=== PATIENT | female | born 1975 | race Two or more races ===

== ENCOUNTER → 2017-03-13 | Outpatient (CLI) | payer OTHER ==
[~2017-03-13] MED LIST: BCP; SERT25TA PO
== END | disposition home or self-care (01) ==
LOC: CFH 13:20
PROVIDERS: ATTEND Family Medicine
DX: N63 Unspecified lump in breast (principal); R92.2 Inconclusive mammogram
CPT/HCPCS: 76641; G0206

== ENCOUNTER → 2017-04-10 | Outpatient (CLI) | payer OTHER | END | disposition home or self-care (01) | LOC: CFH 07:07 | PROVIDERS: ATTEND Family Medicine | DX: N63 Unspecified lump in breast (principal); R92.2 Inconclusive mammogram | CPT/HCPCS: 19083; 88305; G0206-LT ==

== ENCOUNTER 2020-01-12 14:17 | Emergency (ER) | payer OTHER ==
[~2020-01-12] VITALS: Ht 147.3 cm; Wt 62.2 kg
--- NOTE | 2020-01-12 14:40 | NUR ---
FIRST CONTACT WITH PT. PT REPORT ABD PAIN SINCE THE MORNING FOR EPIGASTRIC PAIN, NO RADIATION. UNABLE TO EAT, +N/V, NPO BM OR PASS GAS. PT'S AOX4. RESPS EVEN AND UNLABORED. BP/SPO2 MONITORS IN PLACE. CALL LIGHT WITHIN REACH.
--- NOTE | 2020-01-12 14:40 | NUR ---
PT AMB TO BR AND BACK TO ROOM. PT PROVIDED A LITTLE AMOUNT OF URINE SAMPLE. THIS RN WALKED TO LAB FOR UA.
[2020-01-12 15:11] LABS: MICROSCOPIC INDICATED
[2020-01-12 15:16] LABS: CULTURE INDICATED? NO
--- NOTE | 2020-01-12 15:26 | NUR ---
PT RESTING IN [facility]. PT'S AOX4. RESPS EVEN AND UNLABORED. BP/SPO2 MONITORS IN PLACE.
--- NOTE | 2020-01-12 15:51 | NUR ---
pt in xray at this time.
[2020-01-12] MEDS ORDERED: HYDROmorphone 1 MG/ML, 1ML INJ ONE (15:56)
[2020-01-12] MEDS ORDERED: MAALOX/HYOSCYAMINE/LIDOCAINE 45 ML BTL ONE (15:56)
[2020-01-12] MEDS ORDERED: ONDANSETRON 2MG/ML, 2ML ONE (15:56)
[2020-01-12] MEDS ORDERED: MAALOX/HYOSCYAMINE/LIDOCAINE 45 ML BTL PO ONE (16:00)
[2020-01-12] MEDS ORDERED: HYDROmorphone 2 MG/ML, 1ML IVPush PRN (16:00)
[2020-01-12] MEDS ORDERED: SODIUM CHLORIDE 0.9% 1,000ML IVBOLUS ONE (16:00)
[2020-01-12] MEDS ORDERED: SODIUM CHLORIDE FLUSH 10ML SYR IVF ONE (16:00)
[2020-01-12] MEDS ORDERED: ONDANSETRON 2MG/ML, 2ML IVPush ONE (16:00)
--- NOTE | 2020-01-12 16:09 | NUR ---
PT MEDICATED PER EMAR. PT TOLERATED WELL. NS INFUSING AT THIS TIME.
[2020-01-12 16:14] LABS: BASOPHILS # (AUTO) 0.01 x10^3/uL (0-0.1); BASOPHILS % (AUTO) 0 % (0-1); EOSINOPHILS % (AUTO) 0 % (1-7); LYMPHOCYTES # (AUTO) 0.69 x10^3/uL (1-3.4); LYMPHOCYTES % (AUTO) 5 % (22-44); MD NO; MEAN CORPUSCULAR HEMOGLOBIN 29.3 pg (27.0-34.8); MEAN CORPUSCULAR HGB CONC 33.5 g/dL (32.4-35.8); MEAN CORPUSCULAR VOLUME 87.2 fL (80-100); MEAN PLATELET VOLUME 7.9 fL (7.4-10.4); MONOCYTES # (AUTO) 0.19 x10^3/uL (0.2-0.8); MONOCYTES % (AUTO) 1 % (2-9); NEUTROPHILS # (AUTO) 12.67 x10^3/uL (1.8-6.8); NEUTROPHILS % (AUTO) 94 % (42-75); PLATELET COUNT 368 x10^3/uL (130-400); RED BLOOD COUNT 4.59 x10^6/uL (3.82-5.3); RED CELL DISTRIBUTION WIDTH 12.8 % (9.6-15.2)
[2020-01-12 16:27] LABS: ALANINE AMINOTRANSFERASE 18 U/L (12-78); ANION GAP 11 mmol/L (5-15); CALCIUM 9.2 mg/dL (8.5-10.1); CHLORIDE 108 mmol/L (98-107); CREATININE 0.85 mg/dL (0.55-1.02)
[2020-01-12 16:30] LABS: ALKALINE PHOSPHATASE 71 U/L (45-117); BILIRUBIN,TOTAL 0.7 mg/dL (0.2-1.0); TOTAL PROTEIN 7.9 g/dL (6.4-8.2)
--- NOTE | 2020-01-12 17:07 | NUR ---
pt's pain level is 4/10 at this time. pt resting in gurney. pt's aox4. resps even and unlabored.
[2020-01-12] MEDS ORDERED: OMNIPAQUE 350 MG/ML, 100ML BOTTLE ONE (17:50)
[2020-01-12 18:00] VITALS: BP 126/69
--- NOTE | 2020-01-12 18:00 | NUR ---
PT BACK TO ROOM FROM CT. PT'S AOX4. RESPS EVEN AND UNLABORED. BP/SPO2 MONITORS IN PLACE. CALL LIGHT WITHIN REACH.
--- NOTE | 2020-01-12 18:27 | NUR ---
Patient given discharge instructions and they have confirmed that they understand the instructions.
== END 2020-01-12 18:28 | disposition home or self-care (01) ==
LOC: ED 18:20
DX: R10.13 Epigastric pain (principal); D72.829 Elevated white blood cell count, unspecified; R11.2 Nausea with vomiting, unspecified; I10 Essential (primary) hypertension
CPT/HCPCS: 36415; 74022; 74177; 80053; 81001; 83605; 83690; 85025; 96361; 96374; 96375; 99285; J1170; J2405; J7030; Q9967

== ENCOUNTER 2020-01-19 08:47 | Emergency (ER) | payer OTHER ==
[~2020-01-19] VITALS: Ht 147.3 cm; Wt 62.3 kg
--- NOTE | 2020-01-19 09:08 | NUR ---
PT PRESENTS TO ED WITH C/O EPIGASTRIC PAIN, PT WAS SEEN HERE ON DATE OF ONSET LAST SUNDAY, PT STATES AFTER THAT IT SUBSIDED FOR TWO DAYS AND HAS RETURNED. PT REPORTS ONE LOOSE BM THIS AM, DENIES N/V. PT DENIES HEMATOCHEZIA. PT DENIES COUGH/SICK CONTACTS. PT ATTACHED TO ALL MONITORS, DRESSED IN GOWN AND PROVIDED WITH WARM BLANKET. CALL LIGHT IN REACH. AWAITING MD AND ORDERS.
[2020-01-19] MEDS ORDERED: FAMOTIDINE 20 MG TABLET PO ONE (10:00)
[2020-01-19] MEDS ORDERED: MAALOX/HYOSCYAMINE/LIDOCAINE 45 ML BTL PO ONE (10:00)
[2020-01-19] MEDS ORDERED: MAALOX/HYOSCYAMINE/LIDOCAINE 45 ML BTL ONE (10:02)
[2020-01-19] MEDS ORDERED: FAMOTIDINE 20 MG TABLET ONE (10:02)
[2020-01-19 10:11] LABS: BASOPHILS % (AUTO) 0 % (0-1); EOSINOPHILS # (AUTO) 0.02 x10^3/uL (0-0.4); EOSINOPHILS % (AUTO) 0 % (1-7); LYMPHOCYTES # (AUTO) 1.12 x10^3/uL (1-3.4); LYMPHOCYTES % (AUTO) 9 % (22-44); MD NO; MEAN CORPUSCULAR HEMOGLOBIN 29.1 pg (27.0-34.8); MEAN CORPUSCULAR HGB CONC 33.4 g/dL (32.4-35.8); MEAN CORPUSCULAR VOLUME 87.2 fL (80-100); MEAN PLATELET VOLUME 7.8 fL (7.4-10.4); MONOCYTES # (AUTO) 0.14 x10^3/uL (0.2-0.8); MONOCYTES % (AUTO) 1 % (2-9); NEUTROPHILS % (AUTO) 90 % (42-75); PLATELET COUNT 428 x10^3/uL (130-400); RED BLOOD COUNT 4.72 x10^6/uL (3.82-5.3); RED CELL DISTRIBUTION WIDTH 12.4 % (9.6-15.2)
[2020-01-19 10:19] LABS: ALANINE AMINOTRANSFERASE 28 U/L (12-78); ALBUMIN 3.9 g/dL (3.4-5.0); ANION GAP 7 mmol/L (5-15); CALCIUM 9.3 mg/dL (8.5-10.1); CHLORIDE 109 mmol/L (98-107); CREATININE 0.88 mg/dL (0.55-1.02)
[2020-01-19 10:21] LABS: ALKALINE PHOSPHATASE 84 U/L (45-117); BILIRUBIN,TOTAL 0.5 mg/dL (0.2-1.0); TOTAL PROTEIN 7.9 g/dL (6.4-8.2)
[2020-01-19] MEDS ORDERED: ONDANSETRON 2MG/ML, 2ML ONE (10:29)
[2020-01-19] MEDS ORDERED: ONDANSETRON 2MG/ML, 2ML IVPush ONE (10:30)
[2020-01-19] MEDS ORDERED: SODIUM CHLORIDE FLUSH 10ML SYR IVF ONE (10:30)
[2020-01-19] MEDS ORDERED: MORPHINE SULFATE 4 MG/ML, 1ML ONE ×3 (10:30→14:25)
[2020-01-19] MEDS: MORPHINE SULFATE 4 MG/ML, 1ML IVPush PRN ×2 (10:35→12:46)
--- NOTE | 2020-01-19 10:38 | NUR ---
PT REASSESSED, IN TEARS D/T INCREASED EPIGASTRIC PAIN. NO N/V. YENNY DIAZ NOTIFIED. MEDS ORDERED AND ADMIN PER EMAR, TOLERATING WELL. ALL MONITORS REMAIN IN PLACE. AWAITING PROVIDER REASSESSMENT AND DISPO.
--- NOTE | 2020-01-19 10:55 | NUR ---
PT REPORTS PAIN LEVEL DOWN FROM 10/10 TO 7/10 AT THIS TIME. PT A&O, RESPS EVEN AND UNLABORED, NSR ON MATTRESS SPECIALIST WITH NO ECTOPY. AWAITING PROVIDER REASSESSMENT AND DISPO.
--- NOTE | 2020-01-19 10:58 | NUR ---
REPORT GIVEN TO ROCHELLE LOGAN AT BEDSIDE.
--- NOTE | 2020-01-19 10:58 | NUR ---
PT REPORT FROM ROCHELLE ALCALA. PT CARE TO BE ASSUMED. PT SITTING QUIETLY ON BED, AWAITING TEST RESULTS.
--- NOTE | 2020-01-19 11:26 | NUR ---
DR ESTRADA BS
[2020-01-19] MEDS ORDERED: LISI10TA2 PO (11:29)
[2020-01-19] MEDS ORDERED: VILA40TA PO (11:29)
[2020-01-19] MEDS ORDERED: LEVO1TAB6 PO (11:29)
[2020-01-19] MEDS ORDERED: FAMOTIDINE 20 MG/2 ML IV ONE (11:30)
[2020-01-19] MEDS ORDERED: FAMOTIDINE 20 MG/2 ML ONE (11:34)
--- NOTE | 2020-01-19 11:44 | NUR ---
PIV ASSESSED: PATENT. PEPCID GIVEN PER EMAR. PT CHOSE TO HOLD MORPHINE UNTIL JUST PRIOR TO DC. U/S NOW AT BS.
--- NOTE | 2020-01-19 12:49 | NUR ---
MORPHINE GIVEN PER EMAR
--- NOTE | 2020-01-19 14:12 | NUR ---
CRISTA TOBIN TO DISCUSS POC
[2020-01-19 14:28] VITALS: BP 135/69
[2020-01-19] MEDS ORDERED: MORPHINE SULFATE 4 MG/ML, 1ML IVPush PRN (14:30)
== END 2020-01-19 14:48 | disposition home or self-care (01) ==
LOC: ED 12:08
DX: K80.50 Calculus of bile duct without cholangitis or cholecystitis without obstruction (principal); I10 Essential (primary) hypertension
CPT/HCPCS: 36415; 76700; 80053; 83690; 85025; 93005; 96374; 96375; 96376; 99285; J2270; J2405; J3490

== ENCOUNTER 2020-03-25 12:34 | Outpatient (CLI) | payer OTHER ==
[~2020-03-25 12:34] MED LIST changes: +LEVO1TAB6 PO; +LISI10TA2 PO; +VILA40TA PO
[2020-03-25] MEDS ORDERED: FAMO-79 PO (14:04)
[2020-03-25] MEDS ORDERED: ONDA4TAB7 PO (14:04)
== END 2020-03-25 23:59 | disposition home or self-care (01) ==
LOC: STAR 12:34
PROVIDERS: ATTEND Thoracic Surgery (Cardiothoracic Vascular Surgery)
DX: Z11.59 Encounter for screening for other viral diseases (principal)
CPT/HCPCS: U0001-CS

== ENCOUNTER 2020-03-31 12:55 | Day surgery (SDC) | payer OTHER ==
[~2020-03-31] VITALS: Ht 149.9 cm; Wt 59.2 kg
[~2020-03-31 12:55] MED LIST changes: +BUPIVACAINE/PF-EPI 0.5% 1:200K ONE; +FAMO-79 PO; +ONDA4TAB7 PO
[2020-03-31 13:16] VITALS: BP 148/102
[2020-03-31] MEDS ORDERED: LACTATED RINGERS 1,000 ML IV SCH ×2 (13:19→14:33)
[2020-03-31] MEDS ORDERED: CHLORHEXIDINE 15 ML UDC ONE (13:24)
[2020-03-31] MEDS ORDERED: CHLORHEXIDINE 15 ML UDC MM ONE (13:30)
[2020-03-31] MEDS ORDERED: FENTANYL PF 250 MCG/5ML ONE (13:30)
[2020-03-31] MEDS ORDERED: PROPOFOL 50 ML ONE (13:30)
[2020-03-31] MEDS ORDERED: MIDAZOLAM 1 MG/ML, 2ML ONE (13:30)
[2020-03-31 13:36] LABS: HCG UR SG 1.015 (1.003-1.030)
[2020-03-31] MEDS ORDERED: ONDANSETRON 2MG/ML, 2ML IVPush PRN ×2 (15:00)
[2020-03-31] MEDS ORDERED: DIAZEPAM 5 MG/ML, 2ML IVPush PRN (15:00)
[2020-03-31] MEDS ORDERED: OXYcodone 5 MG/5 ML ORAL.SOL UDC PO PRN (15:00)
[2020-03-31] MEDS ORDERED: HYDROcodone/APAP 5/325 TABLET PO PRN (15:00)
[2020-03-31] MEDS ORDERED: ACETAMINOPHEN 650 MG/20.3 ML UDC PO PRN (15:00)
[2020-03-31] MEDS ORDERED: morphine SULFATE 10 MG/ML, 1ML IVPush PRN (15:00)
[2020-03-31] MEDS ORDERED: EPHEDRINE 50 MG/ML, 1ML IVPush PRN (15:00)
[2020-03-31] MEDS ORDERED: EPHEDRINE 50 MG/ML, 1ML IM PRN (15:00)
[2020-03-31] MEDS ORDERED: PROMETHAZINE 25 MG/ML, 1ML IVPush PRN (15:00)
[2020-03-31] MEDS ORDERED: HYDROmorphone 1 MG/ML, 1ML INJ IVPush PRN (15:00)
[2020-03-31] MEDS ORDERED: DIPHENHYDRAMINE 50 MG/ML, 1ML IVPush PRN (15:00)
[2020-03-31] MEDS ORDERED: FENTANYL PF 100 MCG/2ML IV PRN (15:00)
[2020-03-31] MEDS ORDERED: MEPERIDINE/PF 25MG/0.5ML IVPush PRN (15:00)
[2020-03-31] MEDS ORDERED: ACETAMINOPHEN 650 MG/20.3 ML UDC ONE (15:02)
[2020-03-31] MEDS ORDERED: MEPERIDINE/PF 25MG/ML,1ML ONE (15:22)
[2020-03-31] MEDS ORDERED: ONDANSETRON 2MG/ML, 2ML ONE (15:50)
[2020-03-31] MEDS ORDERED: DEXAMETHASONE 4 MG/ML, 1ML ONE (15:50)
[2020-03-31] MEDS ORDERED: SUCCINYLCHOLINE 20 MG/ML, 10ML ONE (15:50)
[2020-03-31] MEDS ORDERED: ROCURONIUM 10 MG/ML,10ML ONE (15:50)
[2020-03-31] MEDS ORDERED: KETOROLAC 30 MG/1 ML ONE (15:50)
[2020-03-31] MEDS ORDERED: CEFAZOLIN 1,000 MG ONE (15:50)
== END 2020-03-31 19:00 | disposition home or self-care (01) ==
LOC: OUT 12:55
PROVIDERS: ATTEND Thoracic Surgery (Cardiothoracic Vascular Surgery)
DX: K80.10 Calculus of gallbladder with chronic cholecystitis without obstruction (principal); K82.8 Other specified diseases of gallbladder; R59.0 Localized enlarged lymph nodes; Z91.040 Latex allergy status
CPT/HCPCS: 47562; 81025; 88304; 88305; J0330; J0690; J1100; J1200; J1885; J2175; J2250; J2405; J2704; J3010; J7120